=== PATIENT | female | born 1995 | race Caucasian/White ===

== ENCOUNTER 2019-02-25 09:53 | Emergency (ER) | payer BC ==
[~2019-02-25] VITALS: Ht 162.6 cm; Wt 78.5 kg
[2019-02-25 10:40] VITALS: BP 111/64
== END 2019-02-25 10:41 | disposition home or self-care (01) ==
LOC: ER 09:54
DX: M94.0 Chondrocostal junction syndrome [Tietze] (principal)
CPT/HCPCS: 93005; 99283